=== PATIENT | male | born 1990 | race Caucasian/White ===

== ENCOUNTER → 2019-07-25 | Outpatient (CLI) | payer MEDICARE, OTHER ==
[2019-07-25 23:12] LABS: African American GFR (CKD) 139.9 (60.0-200.0); Albumin 4.8 g/dL (3.80-4.90); Albumin/Globulin Ratio 2.18 (1.60-3.17); Anion Gap 8.1 mmol/L (4.00-12.00); Calcium 9.6 mg/dL (8.7-10.3); Carbon Dioxide 29.9 mmol/L (21.6-31.8); Globulin 2.2 g/dL (1.6-3.3); Non-African American GFR(CKD) 120.7 (60.0-200.0); Potassium 4.4 mmol/L (3.5-5.5); Total Bilirubin 0.3 mg/dL (0.2-1.2)
== END | disposition home or self-care (01) ==
LOC: LABWHC1 10:41
PROVIDERS: ATTEND Psychiatry & Neurology Neurology
DX: G40.219 Localization-related (focal) (partial) symptomatic epilepsy and epileptic syndromes with complex partial seizures, intractable, without status epilepticus (principal)
CPT/HCPCS: 36415; 80053

== ENCOUNTER 2020-06-08 21:28 | Emergency (ER) | payer MEDICARE, OTHER ==
[2020-06-08 21:38] VITALS: BP 128/85; PULSE 85; RESP 20; TEMP 97.6
--- NOTE | 2020-06-08 22:26 | XR ---
EXAMINATION TYPE: XR hand complete LT DATE OF EXAM: 06/08/2020 COMPARISON: NONE HISTORY: Left hand swelling TECHNIQUE: 3 views FINDINGS: There is no fracture nor dislocation. Metacarpals are intact. There are no erosions. Joint spaces are normal. Carpal bones are intact. IMPRESSION: No acute abnormality of the left hand.
--- NOTE | 2020-06-08 22:31 | ED ---
Extremity Problem HPI - General Chief complaint: Extremity Problem,Nontraumatic Stated complaint: Lt hand swelling Time Seen by Provider: 06/08/20 21:37 Source: patient Mode of arrival: ambulatory Limitations: no limitations - History of Present Illness Initial comments: Patient is a 29-year-old male, history of mental impairment, presenting to emergency Department with his mother with complaints of swelling in his left hand that was noticed today. Mother states the patient lives in a detention and the medical receptionist states that she noticed some swelling on his left hand near the left palm. Patient denies any falls or trauma states that the area does not hurt 12 are they're concerned with the swelling. Mother states that patient will not let them know if he is having pain. He states he was using a shovel today. He has no further complaints. There is no previous injuries of his left hand. - Related Data Home Medications Medication Instructions Recorded Confirmed Cannabidiol (Cbd) [Epidiolex] 800 mg PO HS@199906/08/20 06/08/20 Felbamate 1,200 mg PO HS@199906/08/20 06/08/20 Felbamate 600 mg PO BID@0800,1500 06/08/20 06/08/20 cloBAZam [Clobazam] 40 mg PO HS@199906/08/20 06/08/20 Allergies Allergy/AdvReac Type Severity Reaction Status Date / Time No Known Allergies Allergy Verified 06/08/20 22:05 Review of Systems ROS Statement: Those systems with pertinent positive or pertinent negative responses have been documented in the HPI. ROS Other: All systems not noted in ROS Statement are negative. Past Medical History Past Medical History: Seizure Disorder History of Any Multi-Drug Resistant Organisms: None Reported Additional Past Surgical History / Comment(s): Neuro surgery Past Psychological History: No Psychological Hx Reported Smoking Status: Never smoker Past Alcohol Use History: None Reported Past Drug Use History: None Reported General Exam - General Exam Comments Initial Comments: GENERAL: Patient is well-developed and well-nourished. Patient is nontoxic and in no acute distress. HEAD: Atraumatic, normocephalic. EYES: Pupils equal round and reactive to light, extraocular movements intact, sclera anicteric, conjunctiva are normal. Eyelids were unremarkable. ENT: TMs normal, nares patent, oropharynx clear without exudates. Moist mucous membranes. NECK: Normal range of motion, supple without lymphadenopathy or JVD. LUNGS: Unlabored respirations. Breath sounds clear to auscultation bilaterally and equal. No wheezes rales or rhonchi. HEART: Regular rate and rhythm without murmurs, rubs or gallops. ABDOMEN: Soft, nontender, normoactive bowel sounds. No guarding, no rebound. No masses appreciated. : Deferred MUSCULOSKELETAL: Patient does have some mild swelling of the left thenar area, no erythema, he has full range of motion of his left hand. He is neurovascular intact. No clubbing or cyanosis. NEUROLOGICAL: Patient is alert and oriented x 3. Motor and sensory are also intact. Normal speech, normal gait. PSYCH: Normal mood, normal affect. SKIN: Warm, Dry, normal turgor, no rashes or lesions noted. Limitations: no limitations Course Vital Signs 06/08/20 21:32 Temperature 97.6 F Pulse Rate 85 Respiratory 20 Rate Blood Pressure 128/85 O2 Sat by Pulse 99 Oximetry Medical Decision Making - Medical Decision Making Patient is a 29-year-old male here for swelling of the left hand, denies any injuries or trauma. He does live in a detention, mentally handicapped. X-rays of the left hand reveal no acute fractures dislocations. I discussed with patient's mother that this could be just an overuse injury from the shoveling he did today. Recommend ice to the area. If symptoms persist after one week, follow-up with PCP. Mother is in agreement this plan of care. He is stable for discharge. Disposition Clinical Impression: Swelling of left hand Disposition: HOME SELF-CARE Condition: Stable Instructions (If sedation given, give patient instructions): Swollen Joint (ED) Additional Instructions: Please return to the Emergency Department if symptoms worsen or any other concerns. May apply ice to the area. Limit anymore pushing activities with the left hand. Follow-up with PCP. Is patient prescribed a controlled substance at d/c from ED?: No Referrals: Carmelo Langley MD [Primary Care Provider] - 1-2 days
== END 2020-06-08 22:40 | disposition home or self-care (01) ==
LOC: EEVIPCON 21:28 → EC 21:28
DX: M79.89 Other specified soft tissue disorders (principal); G40.909 Epilepsy, unspecified, not intractable, without status epilepticus; Z79.899 Other long term (current) drug therapy; Z98.890 Other specified postprocedural states
CPT/HCPCS: 99283

== ENCOUNTER → 2021-06-22 | Outpatient (CLI) | payer MEDICARE, OTHER ==
[2021-06-22 11:21] LABS: Basophils # (A) 0.03 X 10*3/uL (0.00-0.10); Basophils % (A) 0.6 %; Eosinophils # (A) 0.17 X 10*3/uL (0.04-0.35); Eosinophils % (A) 3.4 %; HCT 44.7 % (39.6-50.0); HGB 13.9 g/dL (13.0-17.0); Lymphocytes # (A) 1.61 X 10*3/uL (0.90-5.00); Lymphocytes % (A) 31.9 %; MCH 29.9 pg (27.0-32.0); MCHC 31.1 g/dL (32.0-37.0); MCV 96.1 fL (80.0-97.0); Mean Platelet Volume 9.7 fL (9.5-12.2); Monocytes # (A) 0.49 X 10*3/uL (0.20-1.00); Monocytes % (A) 9.7 %; Neutrophils # (A) 2.73 X 10*3/uL (1.80-7.70); Neutrophils % (A) 54.2 %; Platelet Count 205 X 10*3/uL (140-440); RBC 4.65 X 10*6/uL (4.40-5.60); RDW 12.4 % (11.5-14.5); WBC 5.04 X 10*3/uL (4.50-10.00)
[2021-06-22 12:25] LABS: African American GFR (CKD) 131.4 (60.0-200.0); Albumin 4.8 g/dL (3.8-4.9); Anion Gap 13.2 mmol/L (4.00-12.00); Blood Urea Nitrogen 16.2 mg/dL (9.0-27.0); Calcium 9.3 mg/dL (8.7-10.3); Carbon Dioxide 24.8 mmol/L (21.6-31.8); Chol/HDL Ratio 3.15 Ratio; Globulin 2.4 g/dL (1.6-3.3); HDL Cholesterol 52.4 mg/dL (40.00-60.00); LDL Cholesterol,Calculated 101.8 mg/dL (0.0-131.0); Non-African American GFR(CKD) 113.4 (60.0-200.0); Total Bilirubin 0.2 mg/dL (0.30-1.20); Total Protein 7.2 g/dL (6.2-8.2); Triglycerides 54.2 mg/dL (0.00-149.00); VLDL Calculation 10.84 mg/dL (5.00-40.00)
== END | disposition home or self-care (01) ==
LOC: LABWHC1 07:57
PROVIDERS: ATTEND Family Medicine
DX: Z00.01 Encounter for general adult medical examination with abnormal findings (principal); Z13.220 Encounter for screening for lipoid disorders; Z13.29 Encounter for screening for other suspected endocrine disorder; G40.812 Lennox-Gastaut syndrome, not intractable, without status epilepticus; B35.1 Tinea unguium
CPT/HCPCS: 36415; 80053; 80061; 80167; 80339; 84443; 85025

== ENCOUNTER → 2024-02-20 | Outpatient (CLI) | payer MEDICARE, OTHER ==
--- NOTE | 2024-02-20 12:28 | XR ---
EXAMINATION TYPE: XR chest 2V DATE OF EXAM: 02/20/2024 11:22 AM CLINICAL INDICATION:Male, 33 years old with history of J18.9 pneumonia; [facility] COMPARISON: None TECHNIQUE: XR chest 2V Frontal and lateral views of the chest. FINDINGS: Lungs/Pleura: There is no evidence of pleural effusion, focal consolidation, or pneumothorax. Pulmonary vascularity: Unremarkable. Heart/mediastinum: Cardiomediastinal silhouette is unremarkable. Musculoskeletal: No acute osseous pathology. IMPRESSION: No acute cardiopulmonary disease/process.
== END | disposition home or self-care (01) ==
LOC: RADXRMAIN 11:09
PROVIDERS: ATTEND Internal Medicine
DX: J18.9 Pneumonia, unspecified organism (principal)
CPT/HCPCS: 71046